=== PATIENT | male | born 1980 | race American Indian/Alaskan Native ===

== ENCOUNTER 2020-02-12 15:33 | Emergency (ER) | payer SELFPAY ==
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
[2020-02-12 16:36] LABS: Basophils % (Auto) 0.5 % (0.0-1.8); Eosinophils % (Auto) 0.1 % (0.0-4.3); Lymphocytes # (Auto) 0.8 K/mm3 (1.2-5.4); Lymphocytes % (Auto) 13.7 % (13.4-35.0); Mean Corpuscular HGB Conc 37 % (32-34); Mean Corpuscular Volume 91 fl (84-94); Monocytes # (Auto) 0.5 K/mm3 (0.0-0.8); Monocytes % (Auto) 9.1 % (0.0-7.3); Platelet Count 208 K/mm3 (140-440); Red Blood Count 4.06 M/mm3 (3.65-5.03); Red Cell Distribution Width 19.5 % (13.2-15.2)
[2020-02-12 16:38] LABS: Hematocrit 36.8 % (35.5-45.6); Hemoglobin 13.5 gm/dl (11.8-15.2)
--- NOTE | 2020-02-12 16:54 | XRay Report ---
CHEST 1 VIEW 02/12/2020 3:45 PM INDICATION / CLINICAL INFORMATION: Chest pain, shortness of breath. COMPARISON: None available. FINDINGS: SUPPORT DEVICES: None. HEART / MEDIASTINUM: No significant abnormality. LUNGS / PLEURA: No significant pulmonary or pleural abnormality. No pneumothorax. ADDITIONAL FINDINGS: No significant additional findings. IMPRESSION: 1. No acute abnormality of the chest. Signer Name: Darryl Ledbetter MD Signed: 02/12/2020 4:49 PM Workstation Name: [id number]
[2020-02-12 17:00] LABS: Alanine Aminotransferase 14 units/L (7-56); Blood Urea Nitrogen 6 mg/dL (9-20); Calcium 8.8 mg/dL (8.4-10.2); Hemolysis Index 35
[2020-02-12 17:04] LABS: BUN/Creatinine Ratio 10
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
[2020-02-12] MEDS ORDERED: SODIUM CHLORIDE 0.9% 1000 ML 1,000 ML IV ONE (17:45)
[2020-02-12] MEDS ORDERED: ONDANSETRON 4 MG/2 ML INJ IV ONE (17:45)
[2020-02-12 19:49] LABS: Bilirubin,Urine NEG (Negative); Blood,Urine NEG (Negative); Color,Urine Straw (Yellow); Mucus,Urine FEW /HPF; Protein,Urine <15 mg/dL mg/dL (Negative); Urobilinogen,Urine < 2.0 mg/dL (<2.0)
[2020-02-12] MEDS ORDERED: LORazepam 2 MG/ML VIAL IV ONE (19:49)
[2020-02-12 19:52] LABS: RBC,Urine < 1.0 /HPF (0.0-6.0); WBC,Urine < 1.0 /HPF (0.0-6.0)
[2020-02-12 19:56] LABS: Amphetamine Screen,Urine PRESUMPTIVE POSITIVE; Benzodiazepines Screen,Urine PRESUMPTIVE NEGATIVE; Cannabinoid Screen,Urine PRESUMPTIVE NEGATIVE; Cocaine Screen,Urine PRESUMPTIVE NEGATIVE; Methadone Screen,Urine PRESUMPTIVE NEGATIVE; Opiate Screen,Urine PRESUMPTIVE NEGATIVE
[2020-02-12 22:55] VITALS: BP 135/87
== END 2020-02-12 22:54 | disposition home or self-care (01) ==
LOC: ED 15:33
DX: F15.929 Other stimulant use, unspecified with intoxication, unspecified (principal); M62.82 Rhabdomyolysis; Z21 Asymptomatic human immunodeficiency virus [HIV] infection status
CPT/HCPCS: 36415; 71045; 80053; 80307; 81001; 82550; 83690; 83735; 84443; 84484; 85025; 93005; 96361; 96374; 96375; 99284; J2060; J2405; J7030; 80320; G0480